=== PATIENT | female | born 1935 | race Caucasian/White ===

== ENCOUNTER 2020-01-04 08:06 | Outpatient (RCR) | payer MEDICARE, OTHER ==
[~2020-01-04] VITALS: Ht 172.7 cm; Wt 119.9 kg
[~2020-01-04 08:06] MED LIST: ALDACTONE 25MG25 M1 PO; ASPIRIN 81M81 MG/TA2 PO; ATARAX 25MG25 MG/TAB PO; ATROVENT I0.2 MG/1 M IH; BIOTENE DRY M1000 ML PO; COUMADIN 2MG2 MG/TAB PO; CYMBALTA 30MG30 MG PO; CYMBALTA 60MG60 MG PO; FAMVIR250 MG PO; FLONASEALLERGY NS; INDERAL40 MG PO; K-TAB20 PO; LASIX 20MG TABL20 MG PO; LASIX 40MG TABL40 MG PO; NEURONTIN100 MG/CAP PO; OMEGA-3 1000 MG1 CAP PO; PROTONIX 40MG T40 MG PO; SINGULAIR 110 MG/TAB PO; SYNTHROID0.075 MG/T PO; ZOVIRAX5% TP
[2020-01-04 08:24] VITALS: BP 130/66; PULSE 53; TEMP 97.3
[2020-01-04] MEDS ORDERED: ZOVIRAX800 MG PO (09:03)
[2020-01-04] MEDS ORDERED: IPRATROPIUM BROM3 M1 IH (09:05)
[2020-01-04] MEDS ORDERED: BIOTENE DRY M1000 ML PO (09:06)
[2020-01-04] MEDS ORDERED: TAGAMET200 MG PO (09:07)
[2020-01-04] MEDS ORDERED: K-DUR20 MEQ PO (09:10)
[2020-01-04] MEDS ORDERED: INDERAL40 MG PO (09:10)
[2020-01-04] MEDS ORDERED: LASIX 40MG TABL40 MG PO (09:11)
[2020-01-04] MEDS ORDERED: ULTRAM 50MG TAB50 MG PO (09:14)
[2020-01-04] MEDS ORDERED: ZYRTEC 10MG10 MG PO (09:14)
[2020-01-04] MEDS ORDERED: IMODIUM 2MG CAPS2 MG PO (09:15)
--- NOTE | 2020-01-04 09:40 | NUR ---
Pt assisted out by wheelchair with daughter and personal belongings. [facility] information packet sent with pt to provide to [facility] staff.
== END 2020-01-04 10:00 ==
LOC: EUO 08:06
DX: Z79.899 Other long term (current) drug therapy (principal)
CPT/HCPCS: C1751